=== PATIENT | male | born 1995 | race Caucasian/White ===

== ENCOUNTER 2019-10-11 07:49 | Emergency (ER) | payer OTHER ==
[~2019-10-11] VITALS: Ht 175.3 cm; Wt 65.8 kg
== END 2019-10-11 14:38 | disposition home or self-care (01) ==
LOC: ER 07:49
DX: J06.9 Acute upper respiratory infection, unspecified (principal); B33.8 Other specified viral diseases; B96.0 Mycoplasma pneumoniae [M. pneumoniae] as the cause of diseases classified elsewhere; Z20.828 Contact with and (suspected) exposure to other viral communicable diseases